=== PATIENT | female | born 1980 | race American Indian/Alaskan Native ===

== ENCOUNTER 2016-11-07 08:41 | Emergency (ER) | payer MEDICAID, OTHER ==
[2016-11-07 08:47] VITALS: BP 154/111; PULSE 94; RESP 18; TEMP 98.4; O2SAT 100
--- NOTE | 2016-11-07 09:53 | ED PDOC ---
Upper Extremity Pain/Injury Time Seen by Provider: 11/07/16 09:23 Chief Complaint (Nursing): Finger,Hand,&Wrist Chief Complaint (Provider): Wrist pain History Per: Patient History/Exam Limitations: no limitations Onset/Duration Of Symptoms: Days (24hrs) Current Symptoms Are (Timing): Still Present Additional Complaint(s): Pt. with right wrist pain, onging for 24hrs. Radiates up forearm and into hand. Has numbness and tingles in fingers 3, 4, 5 Right. No weakness. Pain on any movement. No injury. 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 No chest pain, dyspnea, dizziness, speech issues , arm numbness/tingles. Past Medical History Reviewed: Nursing Documentation, Vital Signs Vital Signs: Last Vital Signs Temp 98.4 F 11/07/16 08:46 Pulse 94 H 11/07/16 08:46 Resp 18 11/07/16 08:46 BP 154/111 H 11/07/16 08:46 Pulse Ox 100 11/07/16 08:46 - Medical History PMH: Anemia, HTN - Family History Family History: States: Unknown Family Hx - Social History Alcohol: None Drugs: Denies - Home Medications Home Medications: Ambulatory Orders Medication Instructions Recorded Ibuprofen [Motrin] 600 mg PO TID 7 Days 11/07/16 - Allergies Allergies/Adverse Reactions: Allergies Allergy/AdvReac Type Severity Reaction Status Date / Time No Known Allergies Allergy Verified 11/07/16 09:07 Review of Systems Constitutional: Negative for: Weakness Cardiovascular: Negative for: Chest Pain, Edema, Light Headedness Respiratory: Negative for: Shortness of Breath Gastrointestinal: Negative for: Nausea, Vomiting, Abdominal Pain Musculoskeletal: Positive for: Hand Pain. Negative for: Neck Pain, Shoulder Pain Neurological: Positive for: Numbness. Negative for: Weakness Physical Exam - Reviewed Nursing Documentation Reviewed: Yes Vital Signs Reviewed: Yes - Physical Exam Appears: Positive for: Non-toxic, No Acute Distress Head Exam: Positive for: ATRAUMATIC, NORMAL INSPECTION, NORMOCEPHALIC Skin: Positive for: Normal Color, Warm, DRY Eye Exam: Positive for: EOMI, Normal appearance, PERRL Neck: Positive for: Normal, Painless ROM Cardiovascular/Chest: Positive for: Regular Rate, Rhythm Respiratory: Positive for: CNT, Normal Breath Sounds Pulses-Radial (R): 2+ (ulnar 2+) Back: Positive for: Normal Inspection. Negative for: L CVA Tenderness, R CVA Tenderness Extremity: Positive for: Tenderness (R medial wrist tender and limited ROM due to pain; able to make fist with pain. No sensory deficits; tender on taping ventral and medial wrist area. Is a sharp pain per pt.), Capillary Refill ( less then 2 seconds) Neurologic/Psych: Positive for: Alert, Oriented - ECG O2 Sat by Pulse Oximetry: 100 - Radiology X-Ray: Interpreted by Me, Viewed By Me X-Ray Interpretation: No Acute Disease - Progress ED Course And Treament: 1046: Stable. AAOx3. Pain improved. Fu with pcp and hand/ortho surgery. Wrist splint. Procedures - Splinting Location: wrist R Pre-Made Type: velcro Splint: wrist Pre-Proc Neuro Vasc Exam: normal Post-Proc Neuro Vasc Exam: normal Disposition - Clinical Impression Clinical Impression: Carpal tunnel syndrome - Patient ED Disposition Is Patient to be Admitted: No Counseled Patient/Family Regarding: Studies Performed, Diagnosis, Need For Followup, Rx Given - Disposition Referrals: Natan Barreto MD [Staff Provider] - 11/08/16 (see in 2-3 days.) Disposition: Routine/Home Disposition Time: 10:00 Condition: STABLE Additional Instructions: Return if not better in 3 days. Prescriptions: Ibuprofen [Motrin] 600 mg PO TID 7 Days Instructions: Carpal Tunnel Syndrome (ED) Forms: [facility] ED School/Work Excuse
--- NOTE | 2016-11-07 10:52 | RAD ---
PROCEDURE: Right Wrist Radiographs. HISTORY: Pain COMPARISON: None. FINDINGS: BONES: Bone alignment and mineralization are normal. There is no acute fracture or bone destruction. JOINTS: The proximal and distal carpal rows are maintained. SOFT TISSUES: Normal. OTHER FINDINGS: None. IMPRESSION: No acute fracture or dislocation.
== END 2016-11-07 11:11 | disposition home or self-care (01) ==
LOC: H.ER 08:41
DX: G56.00 Carpal tunnel syndrome, unspecified upper limb (principal); I10 Essential (primary) hypertension